=== PATIENT | female | born 1960 | race Caucasian/White ===

== ENCOUNTER 2018-08-31 07:29 | Observation (INO) ==
[2018-08-31] MEDS ORDERED: ASPIRIN 81 MG TAB.CHEW PO ONE (07:49)
[2018-08-31] MEDS ORDERED: NITROGLYCERIN 0.4 MG/TAB BTL SL PRN (07:49)
--- NOTE | 2018-08-31 07:57 | ERNOTE ---
<Ronald Alvarado - Last Filed: 08/31/18 08:01> Chest Pain/Cardiac HPI Chief Complaint: Chest Pain Time Seen by Provider: 08/31/18 07:35 Source: patient Exam Limitations: no limitations Immunizations: IMMUNIZATION HX Immunizations Up to Date Yes History of Influenza Vaccine Yes Hx Pneumococcal Vaccination No Allergies/Adverse Reactions: Allergies azithromycin Adverse Reaction (Severe, Verified 08/31/18 08:09) Swelling of Throat Penicillins Adverse Reaction (Intermediate, Verified 08/31/18 08:09) Hives Sulfa (Sulfonamide Antibiotics) Adverse Reaction (Intermediate, Verified 08/31/18 08:09) Swelling of Face Home Medications: HOME MEDICATIONS Aspirin [Aspir-Low] 81 mg PO DAILY 08/31/18 [Last Taken Unknown] Calc/D3/Mag/Zn/Flavio/Cheko/[place] [Calcium 600 mg Plus Vit D Tab] 1 ea PO DAILY 08/31/18 [Last Taken Unknown] Cranberry 1,500 mg PO DAILY 08/31/18 [Last Taken Unknown] Ibuprofen 800 mg PO BID 08/31/18 [Last Taken Unknown] Lisinopril/Hydrochlorothiazide [Lisinopril-Hctz 20-25 mg Tab] 1 ea PO DAILY 08/31/18 [Last Taken Unknown] Metoprolol Tartrate 50 mg PO DAILY 08/31/18 [Last Taken Unknown] Potassium 99 mg PO DAILY 08/31/18 [Last Taken Unknown] Narrative: Pt states she had onset of palpitations, chest pressure, shortness of breath and diaphoresis around 05:30 this morning. She has been having palpitations for approx 3 months and had and EKG done at school that showed sinus bradycardia with PVC's. She has a cardiology consult later this month. Timing: constant Severity/Quality: moderate, tightness Location: central Chest Pain Radiation: no radiation Activities at Onset: activity Nitro Today/Relief: no nitro taken today Aspirin Treatment Today: 81 mg x 1, provided at home Review of Systems - Review of Systems Constitutional: Absent: recent illness, fever, chills EYE: Absent: vision changes Respiratory: Present: See HPI, shortness of breath Cardiology: Present: See HPI, palpitations Gastrointestinal/Abdominal: Absent: nausea, vomiting Musculoskeletal: Absent: back pain Skin: Absent: rash Neurological: Absent: dizziness/light-headedness Endocrine: Present: excessive sweating Medical History (Last Reviewed 08/31/18 @ 07:56 by Ronald Alvarado DO) Hypertension Family History: Family History (Last Reviewed 08/31/18 @ 07:56 by Ronald Alvarado DO) Mother Diabetes Social History: Preferred Language Ecuadorean Do you have any oriental orthodox or No cultural preference? Smoking Status Never smoker Alcohol Use none Drug Use none No Social History Section defined Physical Exam - Physical Exam General Appearance: Present: wd/wn, alert, no apparent distress Head Exam: Present: normal inspection, no evidence of injury Neck: Present: normal inspection, nontender, supple Respiratory: Present: no respiratory distress, no accessory muscle use, chest nontender, lungs clear Cardiovascular/Chest: Present: regular rate, rhythm, no murmur, extra beats Gastrointestinal/Abdominal: Present: normal bowel sounds, nontender, nondistended, soft Back Exam: Present: normal inspection, normal range of motion, no vertebral tenderness Extremity Exam: Present: normal range of motion, pedal edema Neurological Exam: Present: alert, oriented, normal mood/affect, no motor/sensory deficits Skin Exam: Present: normal color, warm/dry Lymphatic Exam: Present: no adenopathy Progress - Vital Signs Vital Signs: Vital Signs 08/31/18 07:35 Temperature 36.3 C Pulse Rate 86 Respiratory Rate 18 Blood Pressure 141/73 O2 Sat by Pulse Oximetry 99 - Progress/Reassessment Chief Complaint: Chest Pain - Transfer of Care Physician Sign Out: Ronald Alvarado Receiving Physician: Verena Huynh Pending Results: Labs, X-ray results Expected Disposition: Admit Departure Clinical Impression: Atrial flutter Qualifiers: Atrial flutter type: unspecified Qualified Code(s): I48.92 - Unspecified atrial flutter Chest pain Qualifiers: Chest pain type: unspecified Qualified Code(s): R07.9 - Chest pain, unspecified - Departure Disposition: Still a patient Condition: Fair <Verena Huynh - Last Filed: 08/31/18 12:17> Chest Pain/Cardiac HPI Immunizations: IMMUNIZATION HX Immunizations Up to Date Yes History of Influenza Vaccine Yes Hx Pneumococcal Vaccination No Medical History (Last Reviewed 08/31/18 @ 07:56 by Ronald Alvarado DO) Hypertension Family History: Family History (Last Reviewed 08/31/18 @ 07:56 by Ronald Alvarado DO) Mother Diabetes Social History: Preferred Language Ecuadorean Do you have any oriental orthodox or No cultural preference? Smoking Status Never smoker Alcohol Use none Drug Use none No Social History Section defined Physical Exam - Physical Exam General Appearance: Present: wd/wn, alert, no apparent distress Respiratory: Present: no respiratory distress Neurological Exam: Present: alert, oriented, normal mood/affect Progress - Results and Orders Patient's Lab Results:: I have reviewed the patient's lab results. - Vital Signs Patient's Vital Signs:: I have reviewed the patient's vital signs. Vital Signs: Vital Signs 08/31/18 07:35 08/31/18 07:46 08/31/18 07:51 Temperature 36.3 C Pulse Rate 86 92 76 Respiratory Rate 18 16 Blood Pressure 141/73 141/73 O2 Sat by Pulse Oximetry 99 99 08/31/18 08:01 08/31/18 08:16 08/31/18 08:31 Temperature Pulse Rate 80 79 83 Respiratory Rate 17 17 17 Blood Pressure 120/64 124/74 115/66 O2 Sat by Pulse Oximetry 99 97 97 08/31/18 08:46 Temperature Pulse Rate 64 Respiratory Rate 15 Blood Pressure 122/68 O2 Sat by Pulse Oximetry 99 - EKG EKG #1 EKG: atrial flutter, nonspecific ST T wave changes EKG read: Interp. by me - X-Ray X-Ray #1 X-Ray: chest - no acute changes Interpretation: Reviewed by me - Progress/Reassessment Progress Note-Subjective: 08/31/18 09:20 pain better after nitro 10/07 (down from 02/07) discussed test results and limitation of test to rule CAD a-flutter rate controlled, will get d-dimer 08/31/18 10:18 discussed d-dimer with patient and family 08/31/18 10:19 discussed with debbi Francis to admit for observation for chest pain tj casillas
[2018-08-31 08:10] LABS: Hematocrit 42.5 % (37.0-47.0); Hemoglobin 14.1 gm/dL (12.5-16.0); Mean Cell Volume 91.8 fl (78-100); Mean Corpuscular Hemoglobin 30.5 pg (27-31); Mean Corpuscular Hgb Conc 33.2 g/dl (32-36); Mean Platelet Volume 10.6 fl (8-12.5); Neutrophil # 3.2 K/mm3 (1.3-6.0); Neutrophil % 63.9 % (42-75.0); Platelet Count 245 K/mm3 (150-450); Red Blood Count 4.63 M/mm3 (4.2-5.4); Red Cell Distribution Width 13.6 % (11.5-14.0)
[2018-08-31 08:28] LABS: Troponin I Less than 0.017 ng/mL (0.00-0.10)
[2018-08-31 08:32] LABS: ALT 26 U/L (19-67); AST 21 U/L (0-48); Albumin * 3.6 gm/dl (3.4-5.0); Alkaline Phosphatase * 117 U/L (50-170); Anion Gap 13.6 mmol/L (6.8-13.8); BUN/Creatinine Ratio 26.2 (9.0-21.6); Bilirubin, Total 0.6 mg/dL (0.0-1.1); Blood Urea Nitrogen 22 mg/dL (3-23); Ca. Corrected For Albumin 9.6 mg/dL (8.4-10.2); Calcium * 9.6 mg/dL (7.9-10.9); Carbon Dioxide 28.6 mmol/L (24-32.6); Chloride 103 mmol/L (97-106); Glucose * 90 mg/dL (70-110); Potassium 3.2 mmol/L (3.4-4.6); Sodium 142 mmol/L (132-142); TSH * 3.822 uIU/mL (0.358-3.74)
[2018-08-31] MEDS ORDERED: ROSUVASTATIN CALCIUM 20 MG TABLET PO STA (10:34)
[2018-08-31] MEDS: APIXABAN 5 MG TABLET PO SCH ×2 (12:39→20:51)
--- NOTE | 2018-08-31 17:47 | HP ---
Chief Complaint - Chief Complaint Date of Service: 08/31/18 Time of Service: 17:46 Chief Complaint: chest pain r/o ACS History of Present Illness: 58-year-old female with no confirmed cardiac history presented to the ER this morning after being awoken from her sleep around 530 with chest pain/pressure as well as palpitations. She denied radiating pain to her shoulder or jaw. She denied nausea or vomiting, she denied diaphoresis. 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 She has an appointment to see a behavioral health case manager in [place] in 3 weeks. She went to the ER today because thechest pain was new to her aside from the palpitations. She was found to be in atrial flutter and started on Eliquis. Initial cardiac workup including cardiac enzymes were negative. TSH was mildly elevated. EKGs x2 showed her to be in atrial flutter with no obvious ST changes. She had a negative d-dimer. Chest x-ray was negative for acute cardiopulmonary process. Patient was admitted to the floor under observation for chest pain rule out. Her vital signs are stab le. Medical History (Last Reviewed 08/31/18 @ 12:00 by Cristina Nieves RN) Hypertension Surgical History: Surgical History (Last Updated 08/31/18 @ 14:42 by Cristina Nieves RN) History of dilation and curettage Family History: Family History (Last Updated 08/31/18 @ 11:59 by Cristina Nieves RN) Mother Diabetes Other CVA (cerebral vascular accident) Patient's mother is Social History: Patient Lives/Resources Home Utilized Occupation medical services assistant Preferred Language Singaporean Do you have any hinduism or No cultural preference? Smoking Status Former smoker Have you smoked in the past 12 No months Do you dip or chew tobacco No Alcohol Use none Drug Use none No Social History Section defined Review Of Systems (GEN) - Review of Systems Generalized/Overall Review: Absent: Weakness, Chills, Fever EENTM: Present: No Symptoms Reported Respiratory: Present: No Symptoms Reported. Absent: Shortness of Breath Cardiac: Present: Chest Pain, Palpitations. Absent: Edema, Syncope Abdominal: Absent: Nausea, Vomiting Genitourinary: Present: No Symptoms Reported Musculoskeletal: Present: No Symptoms Reported Neurological: Present: No Symptoms Reported. Absent: Headache Skin: Present: No Symptoms Reported Immunizations: IMMUNIZATION HX Immunizations Up to Date Yes History of Influenza Vaccine Yes Hx Pneumococcal Vaccination No Allergies/Adverse Reactions: Allergies Allergy/AdvReac Type Severity Reaction Status Date / Time azithromycin AdvReac Severe Swelling Verified 08/31/18 08:09 of Throat Penicillins AdvReac Intermediate Hives Verified 08/31/18 08:09 Sulfa (Sulfonamide AdvReac Intermediate Swelling Verified 08/31/18 08:09 Antibiotics) of Face Home Medications: HOME MEDICATIONS Aspirin [Aspir-Low] 81 mg PO DAILY 08/31/18 [Last Taken Unknown] Calc/D3/Mag/Zn/Flavio/Cheko/[place] [Calcium 600 mg Plus Vit D Tab] 1 ea PO DAILY 08/31/18 [Last Taken Unknown] Cranberry 15,000 mg PO DAILY 08/31/18 [Last Taken Unknown] Ibuprofen 800 mg PO BID 08/31/18 [Last Taken Unknown] Lisinopril/Hydrochlorothiazide [Lisinopril-Hctz 20-25 mg Tab] 1 ea PO DAILY 08/31/18 [Last Taken Unknown] Metoprolol Tartrate 50 mg PO DAILY 08/31/18 [Last Taken Unknown] Potassium 99 mg PO DAILY 08/31/18 [Last Taken Unknown] Exam - Exam Vital Signs: Vital Signs - Last Taken Temp 37.0 C 08/31/18 15:58 Pulse 85 08/31/18 15:58 Resp 16 08/31/18 15:58 BP 91/48 08/31/18 15:58 Pulse Ox 95 08/31/18 15:58 Constitutional: Present: Alert, Oriented x3, Cooperative, Obese Neck: Present: non-tender, supple Respiratory: Present: chest non-tender, lungs clear, normal breath sounds Cardiovascular/Chest: Present: normal peripheral pulses, irregularly irregular. Absent: diastolic murmur, systolic murmur Abdomen: Present: Normal bowel sounds, soft, nontender /Rectal: Present: Exam deferred Skin Exam: Present: normal color, warm/dry Neurologic: Present: oriented x 3. Absent: facial droop, dizzy/light-headedness Appearance: Present: appropriate appearance, appropriate insight Eye contact: Present: cooperative, good eye contact, normal speech Thoughts: Present: normal thought pattern, normal mood /affect Diagnostic Studies: Abnormal Lab Results 08/31/18 08/31/18 Range/Units 08:00 08:00 Lymphocytes # 1.39 L (1.5-3.5) k/mm3 Potassium 3.2 L (3.4-4.6) mmol/L BUN/Creatinine Ratio 26.2 H (9.0-21.6) TSH 3.822 H (0.358-3.74) uIU/mL Laboratory Results WBC 5.0 K/mm3 (4.0-10.5) 08/31/18 08:00 RBC 4.63 M/mm3 (4.2-5.4) 08/31/18 08:00 Hgb 14.1 gm/dL (12.5-16.0) 08/31/18 08:00 Hct 42.5 % (37.0-47.0) 08/31/18 08:00 MCV 91.8 fl (78-100) 08/31/18 08:00 MCH 30.5 pg (27-31) 08/31/18 08:00 MCHC 33.2 g/dl (32-36) 08/31/18 08:00 RDW 13.6 % (11.5-14.0) 08/31/18 08:00 Plt Count 245 K/mm3 (150-450) 08/31/18 08:00 MPV 10.6 fl (8-12.5) 08/31/18 08:00 Immature Gran % (Auto) 0.20 % (0.001-0.429) 08/31/18 08:00 Immature Gran # (Auto) 0.01 K/mm3 (0.000-0.0310) 08/31/18 08:00 Neutrophils % 63.9 % (42-75.0) 08/31/18 08:00 Lymphocytes % 27.9 % (20-51) 08/31/18 08:00 Monocytes % 5.2 % (0.0-9) 08/31/18 08:00 Eosinophils % 2.2 % (0.0-3.0) 08/31/18 08:00 Basophils % 0.6 % (0.0-1.0) 08/31/18 08:00 Nucleated RBC % 0.0 k/mm3 (0-1) 08/31/18 08:00 Neutrophils # 3.2 K/mm3 (1.3-6.0) 08/31/18 08:00 Lymphocytes # 1.39 k/mm3 (1.5-3.5) L 08/31/18 08:00 Monocytes # 0.3 k/mm3 (0.0-1.0) 08/31/18 08:00 Eosinophils # 0.1 k/mm3 (0.0-0.7) 08/31/18 08:00 Absolute Basophils 0.0 k/mm3 (0.0-0.1) 08/31/18 08:00 D-Dimer 0.49 ug/mL (0.19-0.49) 08/31/18 08:00 Sodium 142 mmol/L (132-142) 08/31/18 08:00 Plasma Sodium 142 mmol/L (130-142) 08/31/18 08:00 Potassium 3.2 mmol/L (3.4-4.6) L 08/31/18 08:00 Chloride 103 mmol/L (97-106) 08/31/18 08:00 Carbon Dioxide 28.6 mmol/L (24-32.6) 08/31/18 08:00 Anion Gap 13.6 mmol/L (6.8-13.8) 08/31/18 08:00 BUN 22 mg/dL (3-23) 08/31/18 08:00 Creatinine 0.84 mg/dL (0.4-1.4) 08/31/18 08:00 Est GFR (Non-Af Amer) 74 mL/min (60-130) 08/31/18 08:00 BUN/Creatinine Ratio 26.2 (9.0-21.6) H 08/31/18 08:00 Random Glucose 90 mg/dL (70-110) 08/31/18 08:00 Calcium 9.6 mg/dL (7.9-10.9) 08/31/18 08:00 Calcium Adj for Albumin 9.6 mg/dL (8.4-10.2) 08/31/18 08:00 Total Bilirubin 0.6 mg/dL (0.0-1.1) 08/31/18 08:00 AST 21 U/L (0-48) 08/31/18 08:00 ALT 26 U/L (19-67) 08/31/18 08:00 Alkaline Phosphatase 117 U/L (50-170) 08/31/18 08:00 Troponin I Less than 0.017 ng/mL (0.00-0.10) 08/31/18 14:08 Total Protein 7.0 gm/dL (6.2-8.2) 08/31/18 08:00 Albumin 3.6 gm/dl (3.4-5.0) 08/31/18 08:00 TSH 3.822 uIU/mL (0.358-3.74) H 08/31/18 08:00 Free T4 0.84 ng/dL (0.76-1.46) 08/31/18 08:00 Assessment/Plan - Narrative Narrative: Patient placed in observation on the floor. Patient started on Eliquis for anticoagulation due to the arrhythmia that she is in. She currently takes metoprolol for her blood pressure which keep her rate controlled. Currently her vital signs are stable she feels fine. Troponins x2 were negative. EKG showed her to be awake rate controlled but in a flutter, no obvious ST changes. Will repeat troponins x1 later this afternoon. Blood pressure well controlled, continue current home medications for this. Currently patient is comfortable, has no concerns at this time. Patient on Eliquis for DVT prophylaxis as well. Will start patient on a heart healthy diet. Nurse to call with any questions or concerns in regard to her health care. Likely home tomorrow morning if there are no acute events overnight - Assessment/Plan (1) Atrial flutter Problem: Acute Qualifiers: Atrial flutter type: unspecified Qualified Code(s): I48.92 - Unspecified atrial flutter (2) Chest pain Problem: Acute Qualifiers: Chest pain type: unspecified Qualified Code(s): R07.9 - Chest pain, unspecified (3) Hypertension Problem: Chronic
[2018-08-31] MEDS ORDERED: ACETAMINOPHEN 500 MG TABLET PO PRN (23:15)
[2018-09-01] MEDS: APIXABAN 5 MG TABLET PO SCH (08:29)
[2018-09-01] MEDS ORDERED: LISINOPRIL 20 MG TABLET PO SCH (09:00)
[2018-09-01] MEDS ORDERED: NON-FORMULARY 1 DOSE DOSE (Lisinopril/Hydrochlorothiazide [Lisinopril-Hctz 20-25 Mg Tab] 1 PO SCH (09:00)
[2018-09-01] MEDS ORDERED: HYDROCHLOROTHIAZIDE 25 MG TABLET PO SCH (09:00)
[2018-09-01] MEDS ORDERED: METOPROLOL TARTRATE 50 MG TABLET PO SCH (09:00)
--- NOTE | 2018-09-01 10:34 | DS ---
(1) Atrial flutter Problem: Acute Qualifiers: Atrial flutter type: unspecified Qualified Code(s): I48.92 - Unspecified atrial flutter (2) Chest pain Problem: Acute Qualifiers: Chest pain type: unspecified Qualified Code(s): R07.9 - Chest pain, unspecified (3) Hypertension Problem: Chronic Description of Stay: 58-year-old female history of hypertension presented to the ER with palpitations and chest pain that began the morning of admission around 530. She was found to be in a-flutter with a normal rate in the mid 70s-80s. Cardiac workup showed her to have normal troponins x3. No no obvious ST changes on EKG though a flutter was present in both obtained. Patient was started on Eliquis 5 mg twice daily and discharged home on this medicine. 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 She is to follow-up with her PCP this week to discuss this admission. She had an echocardiogram within the last year that was within normal limits. Her vital signs are stable during her stay, her blood pressure was within normal limits. She was discharged home in good condition on a cardiac diet. Of note her TSH was mildly elevated at 3.8. This should be rechecked in 6 weeks, advised her to discuss this with her PCP. Procedures Performed: none Results and Findings: Lab Pending Results 08/31/18 08:00: WBC 5.0, RBC 4.63, Hgb 14.1, Hct 42.5, MCV 91.8, MCH 30.5, MCHC 33.2, RDW 13.6, Plt Count 245, MPV 10.6, Immature Gran % (Auto) 0.20, Immature Gran # (Auto) 0.01, Neutrophils % 63.9, Lymphocytes % 27.9, Monocytes % 5.2, Eosinophils % 2.2, Basophils % 0.6, Nucleated RBC % 0.0, Neutrophils # 3.2, Lymphocytes # 1.39 L, Monocytes # 0.3, Eosinophils # 0.1, Absolute Basophils 0.0 08/31/18 08:00: Sodium 142, Plasma Sodium 142, Potassium 3.2 L, Chloride 103, Carbon Dioxide 28.6, Anion Gap 13.6, BUN 22, Creatinine 0.84, Est GFR (Non-Af Amer) 74, BUN/Creatinine Ratio 26.2 H, Random Glucose 90, Calcium 9.6, Calcium Adj for Albumin 9.6, Total Bilirubin 0.6, AST 21, ALT 26, Alkaline Phosphatase 117, Troponin I Less than 0.017, Total Protein 7.0, Albumin 3.6, TSH 3.822 H 08/31/18 08:00: Free T4 0.84 08/31/18 08:00: D-Dimer 0.49 08/31/18 14:08: Troponin I Less than 0.017 08/31/18 18:08: Troponin I Less than 0.017 Discharge Location: Home Disposition: Home self-care Condition: Good Discharge Activity: Activity as tolerated Discharge Diet: Low salt, Low fat/chol Referrals: Oscar Lester MD [Primary Care Provider] - Additional Patient Instructions (free text): Keep appointment your appointment with the [facility]. Prescriptions (Any new or edited meds): Apixaban [Eliquis] 5 mg PO BID #60 tablet Complete Home Medications List: Complete Home Medication List: Aspirin [Aspir-Low] 81 mg PO DAILY 08/31/18 Calc/D3/Mag/Zn/Flavio/Cheko/[place] [Calcium 600 mg Plus Vit D Tab] 1 ea PO DAILY 08/31/18 Cranberry 15,000 mg PO DAILY 08/31/18 Lisinopril/Hydrochlorothiazide [Lisinopril-Hctz 20-25 mg Tab] 1 ea PO DAILY 08/31/18 Metoprolol Tartrate 50 mg PO DAILY 08/31/18 Potassium 99 mg PO DAILY 08/31/18 Acetaminophen [Tylenol] 1,000 mg PO Q6H PRN tablet 09/01/18 Apixaban [Eliquis] 5 mg PO BID #60 tablet 09/01/18 Metoprolol Tartrate [Lopressor] 50 mg PO DAILY tablet 09/01/18
[2018-09-01 10:57] VITALS: BP 118/86
== END 2018-09-01 11:06 | disposition home or self-care (01) ==
LOC: MS 07:29 → ER 07:29 → MS 11:05
PROVIDERS: ADMIT Family Medicine; ATTEND Family Medicine
CPT/HCPCS: 36415; 71020; 71046; 80050; 80053; 84439; 84484; 85025; 85379; 93005; 99285; G0378